=== PATIENT | male | born 1950 | race Caucasian/White ===

== ENCOUNTER 2019-01-27 07:41 | Outpatient (CLI) | payer MEDICARE ==
[2019-02-10] MEDS ORDERED: LISI-167 PO (18:57)
[2019-02-10] MEDS ORDERED: APIX5TAB PO (18:57)
[2019-02-10] MEDS ORDERED: CARV12.52 PO (18:57)
[2019-02-10] MEDS ORDERED: METF500T17 PO (18:57)
[2019-02-10] MEDS ORDERED: CBD (18:59)
[2019-02-19] MEDS ORDERED: CARV25TA12 PO (12:57)
[2019-02-19] MEDS ORDERED: GUAI200T37 PO (12:57)
[2019-02-19] MEDS ORDERED: LISI5TAB7 PO (12:57)
[2019-02-19] MEDS ORDERED: ONDA4TAB13 PO (12:57)
[2019-02-19] MEDS ORDERED: ACET325T26 PO (12:57)
== END 2019-01-27 23:59 | disposition home or self-care (01) ==
LOC: ROC 07:41
PROVIDERS: ATTEND Radiology Radiation Oncology
DX: C79.89 Secondary malignant neoplasm of other specified sites (principal); R91.8 Other nonspecific abnormal finding of lung field; N28.89 Other specified disorders of kidney and ureter; Z79.899 Other long term (current) drug therapy
CPT/HCPCS: G0463

== ENCOUNTER 2019-02-21 12:40 | Emergency (ER) | payer OTHER ==
[~2019-02-21] VITALS: Ht 177.8 cm; Wt 88.2 kg
[~2019-02-21 12:40] MED LIST: ACET325T26 PO; APIX5TAB PO; CARV12.52 PO; CARV25TA12 PO; CBD; GUAI200T37 PO; LISI-167 PO; LISI5TAB7 PO; METF500T17 PO; ONDA4TAB13 PO
--- NOTE | 2019-02-21 12:53 | NUR ---
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 Patient's baseline oxygen is 3L NC at home 29/09. Patient resting on gurney connected to NIBP cuff, continous pulse ox monitor, and vehicle monitor technician. Pt is on 5L NC to maintain SPO2% above 90%. Son at bedside. Bedrails up x 2. Call light within reach.
[2019-02-21 13:24] LABS: BASOPHILS # (AUTO) 0.01 x10^3/uL (0-0.1); BASOPHILS % (AUTO) 0 % (0-1); EOSINOPHILS # (AUTO) 0.11 x10^3/uL (0-0.4); EOSINOPHILS % (AUTO) 1 % (1-7); LYMPHOCYTES # (AUTO) 0.77 x10^3/uL (1-3.4); LYMPHOCYTES % (AUTO) 9 % (22-44); MD NO; MEAN CORPUSCULAR HEMOGLOBIN 27.6 pg (27.5-34.5); MEAN CORPUSCULAR HGB CONC 31.6 g/dL (33.2-36.2); MEAN CORPUSCULAR VOLUME 87.2 fL (81-97); MONOCYTES # (AUTO) 0.63 x10^3/uL (0.2-0.8); MONOCYTES % (AUTO) 7 % (2-9); NEUTROPHILS # (AUTO) 7.52 x10^3/uL (1.8-6.8); NEUTROPHILS % (AUTO) 83 % (42-75); PLATELET COUNT 286 x10^3/uL (130-400); RED BLOOD COUNT 5.39 x10^6/uL (4.38-5.82); RED CELL DISTRIBUTION WIDTH 17.2 % (9.4-14.8)
[2019-02-21 13:39] LABS: ALANINE AMINOTRANSFERASE 8 U/L (12-78); ALBUMIN 2.6 g/dL (3.4-5.0); ANION GAP 11 mmol/L (5-15); CALCIUM 9.3 mg/dL (8.5-10.1); CHLORIDE 100 mmol/L (98-107); CREATININE 1.16 mg/dL (0.7-1.3)
[2019-02-21 13:46] LABS: ALKALINE PHOSPHATASE 63 U/L (45-117); TOTAL PROTEIN 7.7 g/dL (6.4-8.2); TROPONIN I < 0.015 ng/mL (0.000-0.045)
--- NOTE | 2019-02-21 13:46 | NUR ---
Pt resting supine on gurney with eyes closed. Pt has unlabored respirations with even chest rise and fall. NADN. No needs expressed.
[2019-02-21 14:32] VITALS: BP 105/53
--- NOTE | 2019-02-21 14:33 | NUR ---
PIV obtained. Pt transported on gurney from ED room to MRI. NADN. No needs expressed.
[2019-02-21] MEDS ORDERED: GADOTERATE 10 MMOL/20 ML SYR ONE (14:54)
--- NOTE | 2019-02-21 15:18 | NUR ---
Pt back in room from MRI. Son at bedside. NADN. No needs expressed. Call light within reach.
--- NOTE | 2019-02-21 16:37 | NUR ---
Patient and caregiver given discharge instructions and they have confirmed that they understand the instructions. Patient pushed in wheelchair from room to d/c and left with d/c paperwork and all personal belongings. NADN. No needs expressed.
== END 2019-02-21 17:03 | disposition home or self-care (01) ==
LOC: ED 16:20
DX: R06.00 Dyspnea, unspecified (principal); C64.9 Malignant neoplasm of unspecified kidney, except renal pelvis; C34.92 Malignant neoplasm of unspecified part of left bronchus or lung; R53.1 Weakness
CPT/HCPCS: 36415; 70553; 71045; 80053; 83605; 84484; 85025; 93005; 99284; A9575